=== PATIENT | female | born 1960 | race Caucasian/White ===

== ENCOUNTER 2018-05-08 07:29 | Day surgery (SDC) | payer OTHER ==
[2018-05-08] MEDS ORDERED: PROPOFOL 20 ML (09:06)
[2018-05-08] MEDS ORDERED: FENTAnyl 50 MCG/ML VIAL (09:07)
[2018-05-08] MEDS ORDERED: ONDANSETRON 4 MG INJ IV (10:00)
== END 2018-05-08 11:20 | disposition home or self-care (01) ==
LOC: GIL 07:29
DX: Z12.11 Encounter for screening for malignant neoplasm of colon (principal); E03.9 Hypothyroidism, unspecified; D12.6 Benign neoplasm of colon, unspecified
CPT/HCPCS: 45380; 88305